=== PATIENT | male | born 1990 | race Caucasian/White ===

== ENCOUNTER 2019-10-12 21:29 | Emergency (ER) | payer SELFPAY ==
[2019-10-12] MEDS ORDERED: Cephalexin 500 MG Cap PO ONE (22:25)
--- NOTE | 2019-10-12 22:26 | EDM.PDOC ---
ED HPI GENERAL MEDICAL PROBLEM - General Chief Complaint: ENT Problem Stated Complaint: NOSTRIL SWELLING/PAIN Time Seen by Provider: 10/12/19 21:38 Source of Information: Reports: Patient History Limitations: Reports: No Limitations - History of Present Illness INITIAL COMMENTS - FREE TEXT/NARRATIVE: Patient is a 29-year-old male who presents with complaints of a small, swollen, painful area in the distal aspect of his medial left nostril. He feels it may be an ingrown hair or a pimple. He states it is been present for about "a month ". He denies any fever, chills, nausea, or vomiting. His primary care provider is Kamala Costa. Left Nare Pain Score (Numeric/FACES): 7 - Related Data Allergies Allergy/AdvReac Type Severity Reaction Status Date / Time No Known Allergies Allergy Verified 10/12/19 21:44 Home Meds: Home Meds Finasteride 5 mg PO DAILY 10/12/19 [History] cephALEXin [Keflex] 500 mg PO Q6H #20 cap 10/12/19 [Rx] Past Medical History - Past Health History Medical/Surgical History: Denies Medical/Surgical History Social & Family History - Tobacco Use Smoking Status *Q: Current Every Day Smoker Years of Tobacco use: 15 Packs/Tins Daily: 1 ED ROS ENT - Review of Systems Review Of Systems: Comprehensive ROS is negative, except as noted in HPI. ED EXAM, ENT - Physical Exam Exam: See Below Exam Limited By: No Limitations General Appearance: Alert, WD/WN, No Apparent Distress Nose: Other (0.5 cm area of erythema to the medial distal aspect of the left nare. No obvious head which would allow for lancing.) Respiratory/Chest: No Respiratory Distress, Lungs Clear, Normal Breath Sounds, No Accessory Muscle Use, Chest Non-Tender Cardiovascular: Normal Peripheral Pulses, Regular Rate, Rhythm, No Edema, No Gallop, No JVD, No Murmur, No Rub GI/Abdominal: Normal Bowel Sounds, Soft, Non-Tender, No Organomegaly, No Distention, No Abnormal Bruit, No Mass Neurological: Alert, Oriented, CN II-XII Intact, Normal Cognition, Normal Gait, Normal Reflexes, No Motor/Sensory Deficits Psychiatric: Normal Affect, Normal Mood Skin: Warm, Dry, Intact, Normal Color, No Rash Course - Vital Signs Last Recorded V/S: Last Vital Signs Temp 98.7 F 10/12/19 21:41 Pulse 92 10/12/19 21:41 Resp 16 10/12/19 21:41 BP 133/82 10/12/19 21:41 Pulse Ox 97 10/12/19 21:41 Departure - Departure Time of Disposition: 22:22 Disposition: Home, Self-Care 01 Condition: Good Clinical Impression: Epidermoid cyst - Discharge Information *PRESCRIPTION DRUG MONITORING PROGRAM REVIEWED*: No *COPY OF PRESCRIPTION DRUG MONITORING REPORT IN PATIENT BASIM: No Prescriptions: cephALEXin [Keflex] 500 mg PO Q6H #20 cap Instructions: Epidermal Cyst, [id number] Referrals: PCP,None [Primary Care Provider] - Additional Instructions: You were seen in the emergency department for painful area of swelling to your left nostril. On exam, you have in epidermal cyst. You have been started on Keflex which is an oral antibiotic. Take this medication as prescribed. If your symptoms do not resolve at the conclusion of this treatment, recommend that you follow-up with your primary care provider in the clinic. Return to the ER as needed. Sepsis Event Note - Evaluation Sepsis Screening Result: No Definite Risk - Focused Exam Vital Signs: Vital Signs Temp Pulse Resp BP Pulse Ox 10/12/19 21:41 98.7 F 92 16 133/82 97 Date Exam was Performed: 10/12/19 Time Exam was Performed: 22:21
== END 2019-10-12 22:32 | disposition home or self-care (01) ==
LOC: JD.ED 21:29
DX: L72.0 Epidermal cyst (principal); F17.210 Nicotine dependence, cigarettes, uncomplicated; Z79.899 Other long term (current) drug therapy
CPT/HCPCS: 99282; A9270; 99283